=== PATIENT | female | born 1970 | race Caucasian/White ===

== ENCOUNTER → 2018-12-29 12:10 | Emergency (ER) | payer BC ==
[~2018-12-29 12:10] MED LIST: Dexamethasone IV* 4 MG/ML 1 ML (4 MG) IM ONE; Famotidine TAB* 20 MG PO ONE
[2018-12-29 12:15] VITALS: BP 128/86
--- OUTSIDE RECORDS SUMMARY | 2018-12-29 12:49 | XMS REPORT | Continuity of Care Document ---
:1970 External Reference #:[id number] Author Name Yaima Lizama M.D. Address [address] [place] [address] Care Team Providers Name Role Phone Yaima Lizama M.D. Care Team Information Global Marketing Specialist Unavailable Payers Date Identification Numbers Payment Provider Subscriber Policy Number: [id number] [facility] Yordy Marisabel Group Name: [facility] [address] PayID: [id number] [place] [address] Onset: 2017 Policy Number: [id number] Wyatt Molina PayID: [id number] [address] [address] [place] [address] Advance Directives Description No Information Available Problems Description No Information Family History Description No Information Available Social History Type Date Description Comments Sex Unknown Marital Status Lives With Spouse Lives With Son Lives With Daughter Diet Healthy, Well Balanced eating less meat, tends to eat more seafood, lots of vegetables, no juice or sugar drinks, uses a lot of oils and butter, eats lots of grains, avoids processed foods. 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 ETOH Use Currently consumes alcohol typically 1 drink per day Recreational Drug Use Denies Drug Use Enjoy Exercising Enjoys exercising 1-2 times/week, very active, does karate and goes to the gym Allergies, Adverse Reactions, Alerts Date Description Reaction Status Severity Comments 05/17/2015 Penicillin Active hives 05/17/2015 Codeine Active dizziness 02/18/2014 NKDA Inactive Medications Medication Date Status Form Strength Qnty SIG Indications Ordering Provider Ventmichael HFA 06/28/ Active Aerosol 108(90Base 8.5uni inhale two Shawnti 2016 ) mcg/Act ts puffs by roxann Hussein every INSECTICIDE MIXER-C 4 hours as needed for wheeze Fluoxetine HCL / Active Capsules 20mg 90caps Take One [place] 0000 Capsule By Joe Mouth Every M.D., Day R.D. Doxycycline 10/03/ Hx Tablets 100mg 14tabs 1 tab by J10.1 Jamel Oglesbyclate 2018 - mouth twice Florentin 10/10/ a day MD 2018 Azithromycin 08/18/ Hx Tablets 250mg 6tabs take 2 J02.9 Jamel 2017 - tablets by Florentin 10/03/ mouth one MD 2018 time then take one daily for 4 days Cephalexin 06/03/ Hx Capsules 500mg 20caps 1 twice a L03.011 Richard 2017 - day x 10 Casey, 09/01/ days M.D. 2017 Cefdinir 05/20/ Hx Capsules 300mg 20caps 1 by mouth J02.0 Belkys 2018 - twice a day Mitul Freire, 06/03/ for 10 days INSECTICIDE MIXER-C 2018 Vitamin D 03/25/ Hx Capsules [id number] 8caps take 1 Shawnti (Ergocalcifero 2018 - capsule by tobias Hussein) 06/03/ mouth twice INSECTICIDE MIXER-C 2018 weekly for 4 weeks Cefdinir 12/06/ Hx Capsules 300mg 20caps 1 by mouth Rikkiwnti 2016 - twice a day Mitul Freire, 12/16/ for 10 days INSECTICIDE MIXER-C 2016 Erythromycin 12/01/ Hx Ointment 5mg/GM 7gm apply ribbon H10.9 [place] 2016 - of ointment Joe, 01/24/ to inner M.D., 2017 lower eyelid R.D. twice a day for a week Meclizine HCL 11/06/ Hx Tablets 12.5mg 30tabs 1 - 2 tabs H81.10 Irma 2016 - by mouth Shena, 01/24/ three times INSECTICIDE MIXER-C 2016 a day as needed dizziness Meclizine HCL 08/01/ Hx Tablets 12.5mg 14tabs 1 po qhs and H81.12 Yaima 2014 - up to bid P. 11/06/ prn severe Blegen, 2017 vertigo MAnicetoDAniceto Fluoxetine HCL 02/18/ Hx Capsules 10mg 90caps 1 by mouth Belkys 2013 - madison Freire, 11/29/ morning for INSECTICIDE MIXER-C 2015 depression and anxiety Immunizations CPT Code Status Date Vaccine Lot # [id number] Given 10/17/2018 Pneumovax 23 (PPSV23) 65+ years or high risk 2 to [id number] 63 year old 23299 Given 10/17/2018 Influenza Virus Vaccine, Quadrivalent, 3 Yr > [id number] Quad, Preserv Free 27027 Given 06/28/2017 Influenza Virus Vaccine, Quadrivalent, 3 Yr > [id number] Quad, Preserv Free 20611 Given 08/01/2015 Influenza Virus Vaccine, Quadrivalent, 3 Yr > [id number] Quad, Preserv Free 32147 Given 05/17/2015 Tdap (Adacel) [id number] Given 09/23/2014 Influenza Virus Vaccine, Quadrivalent, 3 Yr > Quad, Preserv Free Vital Signs Date Vital Result Comment 12/11/2018 10:45am Weight 171.00 lb Weight 77.566 kg BP Systolic 92 mmHg BP Diastolic 60 mmHg Heart Rate 58 /min Body Temperature 98.3 F Respiratory Rate 16 /min Height 65 inches 5'5" BMI (Body Mass Index) 28.5 kg/m2 Last Menstrual Period [id number] 10/17/2018 9:32am Weight 170.00 lb Weight 77.112 kg BP Systolic 102 mmHg BP Diastolic 60 mmHg Heart Rate 64 /min Body Temperature 98.9 F O2 % BldC Oximetry 98 % 10/10/2018 1:52pm Weight 170.00 lb Weight 77.112 kg BP Systolic 100 mmHg BP Diastolic 60 mmHg Heart Rate 60 /min Body Temperature 97.8 F Respiratory Rate 16 /min O2 % BldC Oximetry 99 % 10/03/2018 11:30am Weight 171.12 lb Weight 77.622 kg BP Systolic 112 mmHg BP Diastolic 60 mmHg Heart Rate 64 /min Body Temperature 98.4 F Respiratory Rate 16 /min Height 65 inches 5'5" BMI (Body Mass Index) 28.5 kg/m2 Last Menstrual Period [id number] O2 % BldC Oximetry 96 % 08/18/2018 8:40am Weight 172.00 lb Weight 78.019 kg BP Systolic 110 mmHg BP Diastolic 68 mmHg Heart Rate 60 /min Body Temperature 100.3 F Respiratory Rate 16 /min O2 % BldC Oximetry 98 % 06/28/2018 10:54am Weight 170.00 lb Weight 77.112 kg BP Systolic 108 mmHg BP Diastolic 68 mmHg Heart Rate 62 /min Body Temperature 98.1 F Respiratory Rate 16 /min O2 % BldC Oximetry 97 % 06/03/2018 3:32pm Weight 173.00 lb Weight 78.473 kg BP Systolic 100 mmHg BP Diastolic 66 mmHg Heart Rate 60 /min Body Temperature 99.2 F Respiratory Rate 12 /min 05/20/2018 8:59am Weight 167.00 lb Weight 75.751 kg BP Systolic 102 mmHg BP Diastolic 64 mmHg Heart Rate 68 /min Body Temperature 100.4 F Respiratory Rate 16 /min O2 % BldC Oximetry 98 % 03/21/2018 11:10am Weight 164.00 lb Weight 74.390 kg BP Systolic 104 mmHg BP Diastolic 62 mmHg Heart Rate 62 /min Body Temperature 98.2 F Respiratory Rate 15 /min Height 64 inches 5'4" BMI (Body Mass Index) 28.1 kg/m2 O2 % BldC Oximetry 98 % 01/24/2017 11:04am Weight 163.00 lb Weight 73.937 kg BP Systolic 100 mmHg BP Diastolic 70 mmHg Heart Rate 76 /min 12/01/2016 10:34am Weight 171.00 lb Weight 77.566 kg BP Systolic 100 mmHg BP Diastolic 60 mmHg Heart Rate 78 /min Body Temperature 98.6 F Respiratory Rate 12 /min O2 % BldC Oximetry 98 % 11/06/2016 11:36am Weight 172.00 lb Weight 78.019 kg BP Systolic 102 mmHg BP Diastolic 58 mmHg Heart Rate 63 /min Body Temperature 98.5 F Respiratory Rate 18 /min O2 % BldC Oximetry 98 % 11/02/2015 11:31am Weight 173.00 lb Weight 78.473 kg BP Systolic 100 mmHg BP Diastolic 60 mmHg Heart Rate 60 /min Body Temperature 98.6 F O2 % BldC Oximetry 98 % 08/01/2015 10:19am Weight 171.00 lb Weight 77.566 kg BP Systolic 88 mmHg BP Diastolic 54 mmHg Heart Rate 64 /min Body Temperature 98.5 F O2 % BldC Oximetry 98 % 05/17/2015 1:38pm Weight 171.00 lb Weight 77.566 kg BP Systolic 100 mmHg BP Diastolic 62 mmHg Heart Rate 76 /min Height 65 inches 5'5" BMI (Body Mass Index) 28.5 kg/m2 Last Menstrual Period [id number] 02/18/2014 8:46am Weight 168.00 lb Weight 76.205 kg BP Systolic 106 mmHg BP Diastolic 70 mmHg Heart Rate 72 /min Height 64.5 inches 5'4.50" BMI (Body Mass Index) 28.4 kg/m2 Results Test Date Facility Test Result H/L Range Note Laboratory test 12/13/2018 [facility] Vitamin B12 306 pg/mL N 180-914 1 finding [phone] Vitamin D Total 25(Oh) 16.0 ng/mL Low 20-50 Lipid Profile 12/13/2018 [facility] Triglycerides 77 mg/dL 2 (Trig/Chol/HDL) [phone] Cholesterol 196 mg/dL 3 HDL Cholesterol 66.8 mg/dL 4 LDL Cholesterol 114 mg/dL 5 Laboratory test 12/11/2018 [facility] Cytology SEE RESULT 6 finding [phone] BELOW Urine DIP 12/11/2018 In House Lab Leukocytes NEG Neg (607)- - Urine Nitrites NEG Neg Urobilinogen NORM Norm Total Protein Urine NEG Neg Urine pH 5 5-6 Urine Blood TRACE Neg Specific Mallard 1.020 1.01-1.02 Urine Ketones NEG Neg Urine Bilirubin NEG Neg Urine Glucose NORM Norm CBC Auto Diff 10/10/2018 [facility] White Blood 5.8 10^3/uL N 3.5-10.8 [phone] Count Red Blood Count 4.88 10^6/uL N 4.00-5.40 Hemoglobin 14.3 g/dL N 12.0-16.0 Hematocrit 44 % N 35-47 Mean Corpuscular Volume 89 fL N 80-97 Mean Corpuscular Hemoglobin 29 pg N 27-31 Mean Corpuscular HGB Conc 33 g/dL N 31-36 Red Cell Distribution Width 13 % N 10.5-15 Platelet Count 313 10^3/uL N 150-450 Mean Platelet Volume 8.8 fL N 7.4-10.4 Abs Neutrophils 3.1 10^3/uL N 1.5-7.7 Abs Lymphocytes 2.1 10^3/uL N 1.0-4.8 Abs Monocytes 0.4 10^3/uL N 0-0.8 Abs Eosinophils 0.2 10^3/uL N 0-0.6 Abs Basophils 0 10^3/uL N 0-0.2 Abs Nucleated RBC 0 10^3/uL Granulocyte % 52.9 % Lymphocyte % 36.2 % Monocyte % 7.4 % Eosinophil % 3.2 % Basophil % 0.3 % Nucleated Red Blood Cells % 0 Comp Metabolic Panel 10/10/2018 [facility] Sodium 139 mmol/L N 135-145 [phone] Potassium 4.7 mmol/L N 3.5-5.0 Chloride 105 mmol/L N 101-111 Co2 Carbon Dioxide 30 mmol/L N 22-32 Anion Gap 4 mmol/L N 2-11 Glucose 82 mg/dL N 70-100 Blood Urea Nitrogen 12 mg/dL N 6-24 Creatinine 0.81 mg/dL N 0.51-0.95 BUN/Creatinine Ratio 14.8 N 8-20 Calcium 9.6 mg/dL N 8.6-10.3 Total Protein 6.8 g/dL N 6.4-8.9 Albumin 4.0 g/dL N 3.2-5.2 Globulin 2.8 g/dL N 2-4 Albumin/Globulin Ratio 1.4 N 1-3 Total Bilirubin 0.60 mg/dL N 0.2-1.0 Alkaline Phosphatase 58 U/L N 34-104 Alt 13 U/L N 7-52 Ast 17 U/L N 13-39 Egfr Non- 75.2 >60 Egfr 90.9 >60 7 Laboratory test 08/18/2018 In House Lab Strep PCR pos finding (607)- - Laboratory test 06/28/2018 In House Lab Strep Screen neg Neg finding (607)- - Laboratory test 05/20/2018 In House Lab Strep PCR POS finding (607)- - Tick-Borne Panel 03/21/2018 [facility] Babesia microti Negative Negative PCR Blood [phone] PCR Babesia ducani Negative Negative Babesia divergens/Mo-1 Negative Negative 8 Anaplasma phagocytophilum Negative Negative Ehrlichia chaffeensis Negative Negative Ehrlichia ewingii/canis Negative Negative Ehrlichia muris-like Negative Negative 9 B. miyamotoi PCR, B Negative Negative 10 Comp Metabolic Panel 03/21/2018 [facility] Sodium 139 mmol/L N 135-145 [phone] Potassium 4.7 mmol/L N 3.5-5.0 Chloride 105 mmol/L N 101-111 Co2 Carbon Dioxide 29 mmol/L N 22-32 Anion Gap 5 mmol/L N 2-11 Glucose 86 mg/dL N 70-100 Blood Urea Nitrogen 9 mg/dL N 6-24 Creatinine 0.78 mg/dL N 0.51-0.95 BUN/Creatinine Ratio 11.5 N 8-20 Calcium 9.4 mg/dL N 8.6-10.3 Total Protein 6.7 g/dL N 6.4-8.9 Albumin 3.9 g/dL N 3.2-5.2 Globulin 2.8 g/dL N 2-4 Albumin/Globulin Ratio 1.4 N 1-3 Total Bilirubin 0.80 mg/dL N 0.2-1.0 Alkaline Phosphatase 54 U/L N 34-104 Alt 12 U/L N 7-52 Ast 17 U/L N 13-39 Egfr Non- 78.8 >60 Egfr 95.4 >60 11 CBC Auto Diff 03/21/2018 [facility] White Blood 6.5 10^3/uL N 3.5-10.8 [phone] Count Red Blood Count 4.62 10^6/uL N 4.00-5.40 Hemoglobin 14.0 g/dL N 12.0-16.0 Hematocrit 43 % N 35-47 Mean Corpuscular Volume 92 fL N 80-97 Mean Corpuscular Hemoglobin 30 pg N 27-31 Mean Corpuscular HGB Conc 33 g/dL N 31-36 Red Cell Distribution Width 13 % N 10.5-15 Platelet Count 274 10^3/uL N 150-450 Mean Platelet Volume 8.6 um3 N 7.4-10.4 Abs Neutrophils 3.8 10^3/uL N 1.5-7.7 Abs Lymphocytes 1.7 10^3/uL N 1.0-4.8 Abs Monocytes 0.5 10^3/uL N 0-0.8 Abs Eosinophils 0.4 10^3/uL N 0-0.6 Abs Basophils 0.1 10^3/uL N 0-0.2 Abs Nucleated RBC 0 10^3/uL Granulocyte % 58.6 % N 38-83 Lymphocyte % 26.9 % N 25-47 Monocyte % 8.0 % High 0-7 Eosinophil % 5.5 % N 0-6 Basophil % 1.0 % N 0-2 Nucleated Red Blood Cells % 0 Laboratory test 03/21/2018 [facility] TSH (Thyroid 2.30 mcIU/mL N 0.34-5.60 12 finding [phone] Stim Horm) Vitamin D Total 25(Oh) 15.8 ng/mL Low 20-50 13 Vitamin B12 369 pg/mL N 180-914 14 Hemoglobin A1c (Glyco HGB) 5.5 % N 4.0-5.6 15 Lyme Western 03/21/2018 [facility] Lyme Disease Negative Negative Blot [phone] IgG Ab WB Lyme Disease IgG Bands Present p66 kDa Lyme Disease IgM Ab WB Negative Negative Lyme Disease IgM Bands Present No bands detecte <SEE NOTE> kDa 16 Lyme Disease Interpretation See Comment 17 Laboratory test 11/02/2015 In House Lab Strep Screen neg Neg finding (607)- - HPV High Risk 02/18/2014 [facility] Human Papillomavirus See Comment N 18 [phone] Source HPV High Risk Type 16, PCR Negative N Negative HPV High Risk Type 18, PCR Negative N Negative HPV Other Risk types Negative N Negative 19 CBC Auto Diff 02/18/2014 [facility] White Blood 6.5 10^3/uL N 4.8-10.8 [phone] Count Red Blood Count 4.58 10^6/uL N 4.0-5.4 Hemoglobin 14.3 g/dL N 12.0-16.0 Hematocrit 41 % N 35-47 Mean Corpuscular Volume 89 fL N 80-97 Mean Corpuscular Hemoglobin 31 pg N 27-31 Mean Corpuscular HGB Conc 35 g/dL N 31-36 Red Cell Distribution Width 13 % N 10.5-15 Platelet Count 270 10^3/uL N 150-450 Mean Platelet Volume 9 um3 N 7.4-10.4 Abs Neutrophils 3.8 10^3/uL N 1.5-7.7 Abs Lymphocytes 1.7 10^3/uL N 1.0-4.8 Abs Monocytes 0.5 10^3/uL N 0-0.8 Abs Eosinophils 0.4 10^3/uL N 0-0.6 Abs Basophils 0.1 10^3/uL N 0-0.2 Abs Nucleated RBC 0 10^3/uL N Granulocyte % 59.3 % N 38-83 Lymphocyte % 25.7 % N 25-47 Monocyte % 8.2 % N 1-9 Eosinophil % 5.9 % N 0-6 Basophil % 0.9 % N 0-2 Nucleated Red Blood Cells % 0.1 N Comp Metabolic Panel 02/18/2014 [facility] Sodium 138 mmol/L N 133-145 [phone] Potassium 4.6 mmol/L N 3.7-5.6 Chloride 104 mmol/L N 101-111 Co2 Carbon Dioxide 31 mmol/L N 22-32 Anion Gap 3 mmol/L N 2-11 Glucose 64 mg/dL Low 70-100 Blood Urea Nitrogen 12 mg/dL N 6-24 Creatinine 0.85 mg/dL N 0.51-0.95 BUN/Creatinine Ratio 14.1 N 8-20 Calcium 9.6 mg/dL N 8.6-10.3 Total Protein 7.0 g/dL N 6.4-8.9 Albumin 4.3 g/dL N 3.2-5.2 Globulin 2.7 g/dL N 2-4 Albumin/Globulin Ratio 1.6 N 1-3 Total Bilirubin 0.80 mg/dL N 0.2-1.0 Alkaline Phosphatase 68 U/L N 34-104 Alt 14 U/L N 7-52 Ast 18 U/L N 13-39 Egfr Non- 72.7 N >60 Egfr 93.4 N >60 20 Lipid Profile 02/18/2014 [facility] Triglycerides 133 mg/dL N 21 (Trig/Chol/HDL) [phone] Cholesterol 192 mg/dL N 22 HDL Cholesterol 57.5 mg/dL N 23 LDL Cholesterol 108 mg/dL N 24 Laboratory test 02/18/2014 [facility] TSH (Thyroid 2.31 N 0.34-5.60 finding [phone] Stimulating IU/mL Horm) Laboratory test 02/18/2014 [facility] Cytology RUN DATE: finding [phone] 02/19/ <SEE NOTE> 1 Normal Range 180 to 914 Indeterminate Range 145 to 180 Deficient Range <145 2 Desirable: <150 Borderline High: 150-199 High: 200-499 Very High: >500 3 Desirable: <200 Borderline High: 200-239 High: >239 4 Low: <40 Desirable: 40-60 High: >60 5 Desirable: <100 Near Optimal: 100-129 Borderline High: 130-159 High: 160-189 Very High: >189 6 SEE RESULT BELOW Name: WYATT MOLINA : [address]: Yaima Lizama MD Acct: [id number] Unit: [id number] AGE: 48 Location: [facility] Re12/11/18 SEX: F Status: REG REF SPEC: [id number] CAREN: 12/11/18-[address] [facility] [address]: Yaima Lizama MD REQ: [id number] RECD: 12/11/18 STATUS: SOUT _ ORDERED: TP IMAGE ANALYS, HPV/Thin Prep, HPV 16/18 GENE COMMENTS: [id number] Negative for Intraepithelial lesion or Malignancy Date Time Test Result Flag (u) Normal Range 12/11/18 1231 @ HPV RNA RFLX GE Negative Negative @ @ The high-risk HPV types detected by the assay include: 16, @ 18, 31, 33, 35, 39, 45, 51, 52, 56, 58, 59, 66, and 68. A. Ectocervical/Endocervical Specimen Adequacy: Satisfactory of evaluation Transformation zone component identified Patient Information: HPV: High risk HPV RNA testing regardless of pap results. HPV 16/18 Genotype Reflex Actual Specimen Date: 12/11/18 LMP If Unknown: Last Menstrual Period Not Given. Date of Last Specimen: 02/18/14 Signed by and Reported on: KENDAL Clarke (ASCP) 1412 This Pap test was evaluated with the assistance of the [employer] Test Imaging System. Due to cytologic findings at the personnel clerk microscope, comprehensive manual rescreening by a Ball Mill Mixer may be required. The Pap Smear is a screening test designed to aid in the detection of premalignant and malignant conditions of the uterine cervix. It is not a diagnostic procedure and should not be used as the sole means of detecting cervical cancer. Both false- positive and false- negative reports do occur. Depending on your risk status, a Pap smear should be obtained and evaluated every 1-3 years. END OF REPORT DEPARTMENT OF PATHOLOGY, [address] [place] [id number] Arturo Frost M.D. Director [facility] # [id number] 7 Because ethnic data is not always readily available, this report includes an eGFR for both -Americans and non- Americans. The National Kidney Disease Education Program (NKDEP) does not endorse the use of the MDRD equation for patients that are not between the ages of 18 and 70, are , have extremes of body size, muscle mass, or nutritional status, or are non- or non-. According to the National Kidney Foundation, irrespective of diagnosis, the stage of the disease is based on the level of kidney function: Stage Description GFR(mL/min/1.73 m(2)) 1 Kidney damage with normal or decreased GFR 90 2 Kidney damage with mild decrease in GFR 60-89 3 Moderate decrease in GFR 30-59 4 Severe decrease in GFR 15-29 5 Kidney failure <15 (or dialysis) 8 ADDITIONAL INFORMATION This test was developed and its performance characteristics determined by [facility] in a manner consistent with CLIA requirements. This test has not been cleared or approved by the U.S. Food and Drug Administration. 9 ADDITIONAL INFORMATION This test was developed and its performance characteristics determined by [facility] in a manner consistent with CLIA requirements. This test has not been cleared or approved by the U.S. Food and Drug Administration. 10 ADDITIONAL INFORMATION This test was developed and its performance characteristics determined by [facility] in a manner consistent with CLIA requirements. This test has not been cleared or approved by the U.S. Food and Drug Administration. Test Performed by: [facility] - [address] [address] 11 Because ethnic data is not always readily available, this report includes an eGFR for both -Americans and non- Americans. The National Kidney Disease Education Program (NKDEP) does not endorse the use of the MDRD equation for patients that are not between the ages of 18 and 70, are , have extremes of body size, muscle mass, or nutritional status, or are non- or non-. According to the National Kidney Foundation, irrespective of diagnosis, the stage of the disease is based on the level of kidney function: Stage Description GFR(mL/min/1.73 m(2)) 1 Kidney damage with normal or decreased GFR 90 2 Kidney damage with mild decrease in GFR 60-89 3 Moderate decrease in GFR 30-59 4 Severe decrease in GFR 15-29 5 Kidney failure <15 (or dialysis) 12 [id number] 14 Normal Range 180 to 914 Indeterminate Range 145 to 180 Deficient Range <145 15 Therapeutic target for the treatment of diabetes mellitus patients is <7% HBA1C, and in selective patients <6.0%. Please refer to [place] [employer] diabetic care guidelines for further information. 16 No bands detected 17 Specific serologic response to B. burgdorferi infection is not detected, but cannot rule out early infection during which low or undetectable antibody levels to B. burgdorferi may be present. If clinically indicated, a new serum specimen should be submitted in 7-14 days. ADDITIONAL INFORMATION CDC criteria require >=5 bands for IgG or >=2 bands for IgM for the Immunoblot to be considered positive. Bands (e.g.,p41) may be detected in patients without Lyme disease, and patterns not meeting the CDC criteria should be interpreted with caution. Immunoblot should be ordered only on specimens that are positive or equivocal by a FDA-licensed Lyme disease antibody screening test (e.g., EIA). Test Performed by: [facility] [address] [place] [address] 18 RESULT: Ectocervical/Endocervical 19 The following Other High Risk HPV types were not detected: 31, 33, 35, 39, 45, 51, 52, 56, 58, 59, 66, and 68 Test Performed by: [address] [address] Application Integration Engineer: Alireza Dupont III, M.D. 20 Because ethnic data is not always readily available, this report includes an eGFR for both -Americans and non- Americans. The National Kidney Disease Education Program (NKDEP) does not endorse the use of the MDRD equation for patients that are not between the ages of 18 and 70, are , have extremes of body size, muscle mass, or nutritional status, or are non- or non-. According to the National Kidney Foundation, irrespective of diagnosis, the stage of the disease is based on the level of kidney function: Stage Description GFR(mL/min/1.73 m(2)) 1 Kidney damage with normal or decreased GFR 90 2 Kidney damage with mild decrease in GFR 60-89 3 Moderate decrease in GFR 30-59 4 Severe decrease in GFR 15-29 5 Kidney failure <15 (or dialysis) 21 Desirable <150 Borderline high 150-199 High 200-499 Very High >500 22 Desirable <200 Borderline high 200-239 High >239 23 Low <40 Desirable: 40-60 High: >60 24 Desirable <100 Near Optimal 100-129 Borderline high 130-159 High 160-189 Very High >189 25 RUN DATE: 02/19/14 [facility] LIVE PAGE 1 RUN TIME: [address] [place], [place] [address] Specimen Inquiry Name: WYATT MOLINA : [address]: Belkys Freire NP Acct: [id number] Unit: [id number] AGE: 43 Location: [facility] Re02/18/14 SEX: F Status: REG REF SPEC: [id number] CAREN: 02/18/14-[address] [facility] [address]: Belkys Freire NP REQ: [id number] RECD: 02/18/14-1248 STATUS: SOUT _ ORDERED: IMAGE ANALYSIS, HPV/Thin Prep FINAL DIAGNOSIS Negative for Intraepithelial lesion or Malignancy COMMENTS: Specimen sent to [facility] [employer] in [place], [place] on 02/19/14 by [id number] at 1115. Results will be reported separately. A. Ectocervical/Endocervical Specimen Adequacy: Satisfactory of evaluation Transformation zone component identified Patient Information: HPV: High risk HPV DNA testing regardless of pap results. Actual Specimen Date: 02/18/14 Other Pertinent History: No History Given Signed (signature on file) KENDAL Clarke (ASCP) 02/19 1124 This Pap test was evaluated with the assistance of the ThinPrep Test Imaging System. Due to cytologic findings at the personnel clerk microscope, comprehensive manual rescreening by a Ball Mill Mixer may be required. The Pap Smear is a screening test designed to aid in the detection of premalignant and malignant conditions of the uterine cervix. It is not a diagnostic procedure and should not be used as the sole means of detecting cervical cancer. Both false- positive and false- negative reports do occur. Depending on your risk status, a Pap smear shoudl be obtained and evaluated every 1-3 years. END OF REPORT * ML=Testing performed at Main Lab DEPARTMENT OF PATHOLOGY, [address] [place] [address] Arturo Frost M.D. Director [facility] # [id number] Procedures Date Code Description Status 06/03/2018 26789 I&D Of Abscess Completed 03/21/2018 72006 EKG, at Least 12 Leads w/Interpretation and Report Completed Encounters Type Date Location Provider Dx Diagnosis Office Visit 10/17/2018 Main Office Simi Combs.1 Flu due to oth ident 9:30a influenza virus w oth resp manifest Z23 Encounter for immunization Office Visit 10/10/2018 2:00p Main Office Kwesi Combs10.1 Flu due to oth ident influenza virus w oth resp manifest Office Visit 10/03/2018 11:30a Main Office Kwesi Combs10.1 Flu due to oth ident influenza virus w oth resp manifest Office Visit 08/18/2018 8:30a Main Office Kwesi Combs02.9 Acute pharyngitis, unspecified B95.0 Streptococcus, group A, causing diseases classd elswhr Office Visit 06/28/2018 10:45a Main Office Kwesi Ozuna02.9 Acute pharyngitis, M.DAniceto unspecified Office Visit 05/20/2018 8:45a Main Office Belkys Bauman J02.0 Streptococcal Storm, INSECTICIDE MIXER-C pharyngitis Office Visit 03/21/2018 11:00a Main Office Belkys Bauman R53.83 Other fatigue Storm, [employer]-C R42 Dizziness and giddiness Office Visit 06/28/2017 9:30a Main Office Belkys Freire, Z00.00 Encntr for general [employer]C adult medical exam w/o abnormal findings Z12.31 Encntr screen mammogram for malignant neoplasm of breast Z23 Encounter for immunization Office Visit 12/01/2016 10:30a Main Office France Diaz H81.10 Benign paroxysmal M.D., R.D. vertigo, unspecified ear H66.91 Otitis media, unspecified, right ear H10.9 Unspecified conjunctivitis Office Visit 11/06/2016 11:30a Main Office Irma Chatterjee, H81.10 Benign paroxysmal [employer] vertigo, unspecified ear Office Visit 11/02/2015 11:15a Main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
--- NOTE | 2018-12-29 12:53 | ED ---
Allergic Reaction/Systemic - HPI Summary HPI Summary: 48 year old female presents to the emergency department for evaluation of a bee sting on her left cheek. Pt was stung 2 hours ago and has been using ice on the area. She states she was experiencing hives on her trunk shortly after. She also had some epigastric discomfort, describing it "like swallowing a large pill ". She took Benadryl prior to arriving to the ED which alleviated her symptoms. Pt denies N/V, diarrhea, headache, fever, SOB, chest pain, difficulty swallowing /breathing, and vision problems. - History of Current Complaint Chief Complaint: EDAllergicReaction Time Seen by Provider: 12/29/18 12:26 Hx Obtained From: Patient Pain Intensity: 0 - Allergies/Home Medications Allergies/Adverse Reactions: Allergies Allergy/AdvReac Type Severity Reaction Status Date / Time codeine AdvReac Nausea And Verified 12/29/18 12:15 Vomiting Penicillins AdvReac Hives Verified 12/29/18 12:15 PMH/Surg Hx/FS Hx/Imm Hx Previously Healthy: Yes Infectious Disease History: No Infectious Disease History: Denies: Traveled Outside the [place] in Last 30 Days Review of Systems Negative: Fever, Chills, Fatigue Negative: Photophobia, Blurred Vision, Diplopia Negative: Palpitations, Chest Pain Negative: Shortness Of Breath, Cough Positive: Other - mild epigastric discomfort. Negative: Abdominal Pain, Vomiting, Diarrhea, Nausea Positive: Rash - few pruritic wheals on abdomen and back, Other - redness, swelling, and pruritis aroung sting site Negative: Headache, Weakness, Paresthesia, Numbness, Slurred Speech All Other Systems Reviewed And Are Negative: Yes Physical Exam Triage Information Reviewed: Yes Vital Signs On Initial Exam: Initial Vitals Temp Pulse Resp BP Pulse Ox 98.4 F 55 16 128/86 98 12/29/18 12:12 12/29/18 12:12 12/29/18 12:12 12/29/18 12:12 12/29/18 12:12 Vital Signs Reviewed: Yes Appearance: Positive: Well-Appearing, No Pain Distress, Well-Nourished Skin: Positive: Warm, Skin Color Reflects Adequate Perfusion, Other - Diffuse erythema and edema on the left zygoma Eyes: Positive: Normal, EOMI, TARSHA, Conjunctiva Clear ENT: Positive: Hearing grossly normal, Pharynx normal Neck: Positive: Supple, Nontender Respiratory/Lung Sounds: Positive: Clear to Auscultation, Breath Sounds Present Cardiovascular: Positive: Normal, RRR Abdomen Description: Positive: Nontender Musculoskeletal: Positive: Normal, Strength/ROM Intact Neurological: Positive: Normal, Sensory/Motor Intact, Alert, Oriented to Person Place, Time Psychiatric: Positive: Normal, Affect/Mood Appropriate Diagnostics - Vital Signs Vital Signs Temp Pulse Resp BP Pulse Ox 12/29/18 12:12 98.4 F 55 16 128/86 98 - Laboratory Lab Statement: Any lab studies that have been ordered have been reviewed, and results considered in the medical decision making process. Allergic Reaction Course/Dx - Course Course Of Treatment: Pt presents 2 hours after being stung by a bee on the left zygoma. She reports hive-like lesions on her abdomen and back shortly after with mild epigastric discomfort. She took benadryl prior to ED arrival which alleviated her symptoms. Her exam reveals erythema and localized swelling around the sting site. No additional skin lesions were noted on her abdomen, trunk, and extremities. 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 She was given a decadron IM injection today. She was also prescribed pepcid and and Epipen to keep with her should she experience worsening reactions in the future. She was also advised to continue with benadryl as needed and follow up if symptoms worsen. Assessment/Plan: Pt seen in conjunction with DEB Blake. Charting by DEB and reviewed and confirmed by me. -Dr Ojeda. No anaphalaxis, minor sx now. Oral pepic plus IM dexamethasone. Rx epipen. - Diagnoses Differential Diagnosis/HQI/PQRI: Positive: Anaphylaxis, Angioedema, Local Allergic Reaction, Urticaria, Other - bee sting Provider Diagnoses: Bee sting, Allergic reaction to bee sting Discharge - Sign-Out/Discharge Documenting (check all that apply): Patient Departure Patient Received Moderate/Deep Sedation with Procedure: No - Discharge Plan Condition: Improved Disposition: HOME Prescriptions: EPINEPHrine [Epipen 2-Devin] 0.3 mg IM ONCE PRN #1 ea PRN Reason: severe allergy symptoms Patient Education Materials: General Allergic Reaction (ED) Referrals: Yaima Lizama MD [Primary Care Provider] - Additional Instructions: Benadryl, Pepcid as needed for itching. EpiPen for more serious allergy symptoms. Return if worse, new symptoms or other concerns as discussed. - Billing Disposition and Condition Condition: IMPROVED Disposition: Home - Attestation Statements Document Initiated by Scribe: No
== END | disposition home or self-care (01) ==
LOC: ED 12:10
DX: T63.441A Toxic effect of venom of bees, accidental (unintentional), initial encounter (principal); Y92.9 Unspecified place or not applicable; Z88.0 Allergy status to penicillin; Z88.5 Allergy status to narcotic agent
CPT/HCPCS: 96372; 99282; A9270-GY; J1100